=== PATIENT | female | born 1980 | race Caucasian/White ===

== ENCOUNTER 2021-11-24 12:13 | Day surgery (SDC) | payer OTHER ==
[2021-11-24] MEDS ORDERED: Depo-Medrol 40 MG/ML IM ONE (12:14)
[2021-11-24] MEDS ORDERED: Sodium Chloride 0.9(Preservative Free) 10 ML IJ ONE (12:14)
[2021-11-24] MEDS ORDERED: DIPRIVAN 200 MG/20 ML IV ONE (13:19)
[2021-11-24] MEDS ORDERED: Lactated Ringers 1,000 ML IV ONE (15:31)
--- NOTE | 2021-11-24 17:36 | XRAY ---
Indication: Right L4-S1 transforaminal BECKA. Intraoperative fluoroscopy provided for 25 seconds. 4 digital spot image submitted for interpretation demonstrates posterior needle tips projecting over the expected right L4 and L5 nerve roots. Small amount of contrast injected for needle tip placement. Correlate with intraoperative findings/report.
--- NOTE | 2021-11-24 17:45 | XRAY ---
25 seconds of fluoroscopy was used in surgery for a right L4-S1 transforaminal BECKA.
== END 2021-11-24 13:40 | disposition home or self-care (01) ==
LOC: SDC-PAIN 12:13
PROVIDERS: ATTEND Psychiatry & Neurology Pain Medicine
DX: M54.16 Radiculopathy, lumbar region (principal); Z79.899 Other long term (current) drug therapy
CPT/HCPCS: 64483; 64484; 72100; 77003; 81025; J1030; J2704; Q9966

== ENCOUNTER 2021-12-15 12:49 | Day surgery (SDC) | payer OTHER ==
[2021-12-15] MEDS ORDERED: Depo-Medrol 40 MG/ML IM ONE (12:50)
[2021-12-15] MEDS ORDERED: BUPIVACAINE 0.5% VIAL IJ ONE (12:50)
[2021-12-15] MEDS ORDERED: DIPRIVAN 200 MG/20 ML IV ONE (13:56)
[2021-12-15] MEDS ORDERED: Lactated Ringers 1,000 ML IV ONE (14:33)
--- NOTE | 2021-12-15 18:26 | XRAY ---
Indication: Right SI joint injection. Intraoperative fluoroscopy provided for 11 seconds. 2 digital spot image submitted for interpretation demonstrates posterior needle tip projecting over the expected right SI joint. Correlate with intraoperative findings/report.
--- NOTE | 2021-12-15 18:34 | XRAY ---
11 seconds fluoroscopy time in surgery for injection of the right SI joint.
== END 2021-12-15 14:25 | disposition home or self-care (01) ==
LOC: SDC-PAIN 12:49
PROVIDERS: ATTEND Psychiatry & Neurology Pain Medicine
DX: M46.1 Sacroiliitis, not elsewhere classified (principal); Z79.899 Other long term (current) drug therapy
CPT/HCPCS: 27096; 72170; 77002; 81025; J1030; J2704; G0260

== ENCOUNTER 2022-02-02 12:14 | Day surgery (SDC) | payer OTHER ==
[2022-02-02] MEDS ORDERED: Xylocaine 1% Vial 30 ML PF IJ ONE (12:15)
[2022-02-02] MEDS ORDERED: DIPRIVAN 200 MG/20 ML IV ONE (13:24)
[2022-02-02] MEDS ORDERED: Lactated Ringers 1,000 ML IV ONE (13:37)
--- NOTE | 2022-02-02 14:54 | XRAY ---
Indication: Bilateral L4-S1 MBB. Intraoperative fluoroscopy provided for 8 seconds. 2 digital spot images submitted for interpretation demonstrates posterior needle tips projecting over the expected left and right L4-S1 nerve roots. Correlate with intraoperative findings/report.
--- NOTE | 2022-02-02 15:13 | XRAY ---
8 seconds fluoroscopy time in surgery for bilateral L4-S1 MBB.
== END 2022-02-02 13:46 | disposition home or self-care (01) ==
LOC: SDC-PAIN 12:14
PROVIDERS: ATTEND Psychiatry & Neurology Pain Medicine
DX: M47.816 Spondylosis without myelopathy or radiculopathy, lumbar region (principal); Z79.899 Other long term (current) drug therapy
CPT/HCPCS: 64493; 64494; 72020; 77002; 81025; J2001; J2704

== ENCOUNTER 2022-08-17 11:53 | Day surgery (SDC) | payer OTHER ==
[2022-08-17] MEDS ORDERED: Depo-Medrol 40 MG/ML IM ONE (11:54)
[2022-08-17] MEDS ORDERED: BUPIVACAINE 0.5% VIAL IJ ONE (11:54)
[2022-08-17 12:42] LABS: HCG URINE TEST NEGATIVE (NEGATIVE)
[2022-08-17] MEDS ORDERED: DIPRIVAN 200 MG/20 ML IV ONE (13:35)
[2022-08-17] MEDS ORDERED: Lactated Ringers 1,000 ML IV ONE (14:19)
--- NOTE | 2022-08-17 23:30 | XRAY ---
12 seconds of fluoroscopy was used in surgery for a bilateral L4-S1 MBB.
--- NOTE | 2022-08-17 23:30 | XRAY ---
Indication: Bilateral L4-S1 MBB. Intraoperative fluoroscopy provided for 12 seconds. Single digital spot image submitted for interpretation demonstrates posterior needle tips projecting over the expected left and right L4-S1 nerve roots. Correlate with intraoperative findings/report.
== END 2022-08-17 14:10 | disposition home or self-care (01) ==
LOC: SDC-PAIN 11:53
PROVIDERS: ATTEND Psychiatry & Neurology Pain Medicine
DX: M47.816 Spondylosis without myelopathy or radiculopathy, lumbar region (principal)
CPT/HCPCS: 64493; 64494; 72020; 77002; 81025; J1030; J2704